=== PATIENT | male | born 1995 | race Caucasian/White ===

== ENCOUNTER 2024-09-29 21:05 | Emergency (ER) | payer MEDICAID ==
[~2024-09-29] VITALS: Ht 167.6 cm; Wt 57.1 kg
[2024-09-29 21:27] VITALS: O2SAT 100
[2024-09-29] MEDS: CEFTRIAXONE SODIUM 1G VIAL IM ONE (23:31)
[2024-09-29] MEDS ORDERED: PENI500T MT (23:36)
[2024-09-29 23:55] VITALS: BP 121/79; PULSE 79; RESP 18; TEMP 37; O2SAT 100
== END 2024-09-29 23:55 | disposition home or self-care (01) ==
LOC: ER 21:05
DX: J03.90 Acute tonsillitis, unspecified (principal); F12.90 Cannabis use, unspecified, uncomplicated; Z90.49 Acquired absence of other specified parts of digestive tract
CPT/HCPCS: 99283; 96372; J0696

== ENCOUNTER 2025-03-24 06:52 | Emergency (ER) | payer MEDICAID ==
[~2025-03-24] VITALS: Ht 165.1 cm; Wt 55.0 kg
[~2025-03-24 06:52] MED LIST: PENI500T MT
[2025-03-24 07:05] VITALS: TEMP 36.9; O2SAT 99
[2025-03-24 07:46] VITALS: BP 114/74; PULSE 72; RESP 16; O2SAT 100
== END 2025-03-24 07:47 | disposition home or self-care (01) ==
LOC: ER 06:52
DX: S61.011A Laceration without foreign body of right thumb without damage to nail, initial encounter (principal); F12.90 Cannabis use, unspecified, uncomplicated; Z90.49 Acquired absence of other specified parts of digestive tract; Z79.899 Other long term (current) drug therapy; W45.8XXA Other foreign body or object entering through skin, initial encounter; Y93.89 Activity, other specified; Y92.89 Other specified places as the place of occurrence of the external cause; Y99.8 Other external cause status
CPT/HCPCS: 99282

== ENCOUNTER 2025-04-12 06:24 | Emergency (ER) | payer BC, MEDICAID ==
[~2025-04-12] VITALS: Ht 165.1 cm; Wt 54.0 kg
[2025-04-12 06:35] VITALS: TEMP 36.9; O2SAT 98
[2025-04-12 07:07] VITALS: BP 113/68; PULSE 70; RESP 12; O2SAT 100
== END 2025-04-12 07:10 | disposition home or self-care (01) ==
LOC: ER 07:01
DX: Z48.00 Encounter for change or removal of nonsurgical wound dressing (principal); M79.89 Other specified soft tissue disorders
CPT/HCPCS: 99282